=== PATIENT | female | born 1940 | race Caucasian/White ===

== ENCOUNTER 2022-01-30 11:41 | Inpatient (IN) | payer MEDICARE, SELFPAY ==
[2022-01-30] VITALS (8 sets, daily range): BP systolic 128–149; BP diastolic 69–75; PULSE 81–99; RESP 15–20; TEMP 37.1–37.3; O2SAT 92–95; BMI 27.0
--- NOTE | 2022-01-30 12:12 | W.ED.ABDPA2 ---
HPI - Abdominal Pain General: Chief Complaint: Abdominal Pain Stated Complaint: abdomen pain Time Seen by Provider: 01/30/22 11:45 Source: patient Mode of arrival: EMS Limitations: no limitations History of Present Illness: 81-year-old female presents emergency room complaining of abdominal pain. She refers pain in the left upper quadrant. States it began 6:00 yesterday morning. She just generally did not feel good she had gone to get some medicines from her pharmacy after that she ate at a fast food restaurant a few hours later she began throwing up with a positive food then bile after that. She denies any hematemesis or coffee-ground emesis. Progressively worse since then she is not had a fever she not had any dysuria urgency or frequency. She denies any black tarry stools. She notes that the pain is triggered by even light touch across the left upper abdominal wall. She is not noticed any rash in that region. MD elicited complaint: abdominal pain Pertinent past history: none Onset (ago): minute(s) Pain Consistency: constant Location: LUQ Severity: mild Quality: sharp Radiation: L flank and back Exacerbating factors: movement and other (Palpation and light touch as well as deep inspiration) Relieving factors: rest Associated Symptoms: Reports bloating, GI cramping, dyspepsia, nausea, poor appetite and vomiting; Denies anorexia, belching, change in bowel habits, change in stool character, chills, coffee ground emesis, constipation, diarrhea, dysuria, excessive flatus, fever(s), heartburn, hematochezia, hematuria, hematemesis, fecal incontinence, loose stools, melena and syncope Review of Systems Const: Denies: fever(s) or chills ENMT: Denies: throat pain, ear or mastoid pain, nasal discharge or nasal congestion Card: Denies: syncope Resp: Denies: dyspnea, productive cough or non-productive cough GI: Reports: nausea, vomiting, bloating and GI cramping; Denies: hematemesis, coffee ground emesis, heartburn, diarrhea, constipation, belching, excessive flatus, fecal incontinence, change in bowel habits, change in stool character, hematochezia or melena : Denies: dysuria or hematuria Skin/Breast: Denies: rash or pruritus PFSH ED PFSH: Medical History Colon cancer Surgical History H/O left hemicolectomy Hx of cholecystectomy Family History Other No pertinent family history Social History Smoking and tobacco status: never smoked Alcohol intake: never Physical Exam Const: GENERAL APPEARANCE: cooperative and comfortable ORIENTATION/CONSCIOUSNESS: Yes awake, Yes oriented to person, Yes oriented to place and Yes oriented to time HENMT: COMMON NORMALS: normocephalic, atraumatic and hearing grossly normal bilaterally HEAD & SCALP: normocephalic and atraumatic Eye: COMMON NORMALS: Equal, round and reactive pupils present, EOMs intact bilaterally, conjunctivae normal and no scleral icterus CONJUNCTIVA: Yes conjunctivae normal PUPIL: Yes Equal, round and reactive pupils present Neck/C-Spine: COMMON NORMALS: full ROM, no lymphadenopathy, supple and no JVD Lymph: LYMPHATIC: no lymphadenopathy noted and no lymphedema noted Resp: COMMON NORMALS: normal respiratory effort, No retractions, No use of accessory muscles and clear to auscultation bilaterally AUSCULTATION: clear to auscultation bilaterally Cardio: COMMON NORMALS: no JVD, regular rate, regular rhythm and No murmurs present (Cardio) RATE: regular rate RHYTHM: regular rhythm GI: COMMON NORMALS: Soft to palpation and No hepatosplenomegaly present AUSCULTATION: Yes normoactive bowel sounds PALPATION: Yes Soft to palpation, No Tenderness to palpation present (GI), No Guarding due to palpation present (GI) and Yes No hepatosplenomegaly present Extremity: COMMON NORMALS: normal to inspection, capillary refill normal, no clubbing, cyanosis or edema, no calf tenderness and no pedal edema Neuro: SENSORIUM/ORIENTATION: Yes oriented to person, Yes oriented to place and Yes oriented to time Skin: COMMON NORMALS: no rashes or lesions noted GENERAL SKIN EXAM: no rashes or lesions noted Course Vital Signs: Vital signs: Vital Signs Temperature 98.5 F 02/01/22 07:43 Pulse Rate 61 02/01/22 11:47 Respiratory Rate 16 02/01/22 11:47 Blood Pressure 120/71 02/01/22 07:43 Pulse Oximetry 92 02/01/22 11:47 MDM - Abdominal Pain Medical Decision Making CT reviewed. Patient has mild pancreatitis additionally has a renal mass he will need to be evaluated family has a L3 compression fracture appears minimal on radiology read is age-indeterminate. Could be contributing to her pain will admit discussed with hospitalist orders written Medical Records I reviewed the patient's medical records. Lab Data I reviewed the patient's lab results. : 01/31/22 05:30 02/01/22 04:45 Labs/Radiology: Radiology Impressions Abdomen/Pelvis CT 01/30/22 12:30 IMPRESSION: 1. No GI tract obstruction. 2. Solid mass RIGHT kidney measures 4.2 x 4.1 x 4.9 cm. Highly suspicious for renal cell carcinoma. 3. Mild soft tissue stranding and thickening along the LEFT pararenal fascia and paracolic gutter. Probably due to a mild case descending colon diverticulitis or pancreatitis of the pancreatic tail. 4. Numerous low-attenuation lesions in the liver consistent with cysts. 5. Prior cholecystectomy. 6. Cystic nodule mid pancreas and probably an additional tiny cysts at the pancreatic neck. Recommend follow-up pancreatic CT in 6 months with IV contrast. 7. Minimal age-indeterminate compression superior endplate of L3. 8. Bilateral femoral head avascular necrosis. Laboratory Results WBC 5.9 10^3/uL (4.0-10.0) 01/30/22 12:51 RBC 4.31 10^6/uL (4.1-5.3) 01/30/22 12:51 Hgb 14.7 g/dL (11.5-15.3) 01/30/22 12:51 Hct 43.7 % (37.0-47.0) 01/30/22 12:51 MCV 101.4 fl (81-99) H 01/30/22 12:51 MCH 34.1 pg (28.0-34.0) H 01/30/22 12:51 MCHC 33.6 g/dL (30.0-36.0) 01/30/22 12:51 RDW 12.5 % (12.1-15.1) 01/30/22 12:51 Plt Count 149 10^3/cmm (130-400) 01/30/22 12:51 MPV 10.9 fL (7.4-10.4) H 01/30/22 12:51 Neut % (Auto) 78.6 % 01/30/22 12:51 Lymph % (Auto) 13.5 % 01/30/22 12:51 [place] % (Auto) 7.1 % 01/30/22 12:51 Eos % (Auto) 0.3 % 01/30/22 12:51 Baso % (Auto) 0.3 % 01/30/22 12:51 Neut # (Auto) 4.67 10^3/uL (1.8-7.7) 01/30/22 12:51 Lymph # (Auto) 0.8 10^3/uL (0.8-4.8) 01/30/22 12:51 [place] # (Auto) 0.4 10^3/uL (0.2-0.9) 01/30/22 12:51 Eos # (Auto) 0.0 10^3/uL (0.0-0.8) 01/30/22 12:51 Baso # (Auto) 0.0 10^3/uL (0.0-0.1) 01/30/22 12:51 Nucleated RBC % (auto) 0 % 01/30/22 12:51 Nucleated RBCs # 0.0 /100WBC 01/30/22 12:51 Sodium 139 mmol/L (136-145) 01/30/22 12:51 Potassium 3.9 mmol/L (3.5-5.1) 01/30/22 12:51 Chloride 103 mmol/L (98-107) 01/30/22 12:51 Carbon Dioxide 21 mmol/L (22-29) L 01/30/22 12:51 Anion Gap 18.9 (5-19) 01/30/22 12:51 BUN 13 mg/dL (8-23) 01/30/22 12:51 Creatinine 0.8 mg/dL (0.5-0.9) 01/30/22 12:51 GFR Calculation Not Reportable 01/30/22 12:51 Glucose 92 mg/dL (65-115) 01/30/22 12:51 Calculated Osmolality 288 mOsm/kg (285-295) 01/30/22 12:51 Lactic Acid 1.1 mmol/L (0.5-2.2) 01/30/22 12:51 Calcium 9.5 mg/dL (8.5-10.5) 01/30/22 12:51 Total Bilirubin 1.3 mg/dL (0.15-1.2) H 01/30/22 12:51 AST 27 U/L (0-32) 01/30/22 12:51 ALT 14 U/L (0-33) 01/30/22 12:51 Alkaline Phosphatase 101 IU/L (35-105) 01/30/22 12:51 Total Protein 7.7 g/dL (6.6-8.7) 01/30/22 12:51 Albumin 4.4 g/dL (3.5-5.2) 01/30/22 12:51 Globulin 3.3 g/dL (1.3-4.6) 01/30/22 12:51 Triglycerides 92 mg/dL (0-150) 01/30/22 12: Lipase > 5756 U/L (13-60) H 01/30/22 12:51 Urine Color Yellow (Yellow) 01/30/22 12:05 Urine Appearance Clear (CLEAR) 01/30/22 12:05 Urine pH 6.5 (5-7) 01/30/22 12:05 Ur Specific [place] 1.010 (1.005-1.030) 01/30/22 12:05 Urine Protein Neg (Negative) 01/30/22 12:05 Urine Glucose (UA) Norm (Normal) 01/30/22 12:05 Urine Ketones 2+ (Negative) H 01/30/22 12:05 Urine Blood Neg (Negative) 01/30/22 12:05 Urine Nitrate Negative (Negative) 01/30/22 12:05 Urine Bilirubin Neg (Negative) 01/30/22 12:05 Urine Urobilinogen Neg mg/dL (Negative) 01/30/22 12:05 Ur Leukocyte Esterase Trace (Negative) H 01/30/22 12:05 Urine RBC Rare /hpf (0-2) 01/30/22 12:05 Urine WBC 5-10 /hpf (0-5) H 01/30/22 12:05 Ur Squamous Epith Cells 0-4 /hpf (0-5) H 01/30/22 12:05 Amorphous Sediment Not Reportable 01/30/22 12:05 Urine Bacteria None /hpf (NONE) 01/30/22 12:05 Discharge Plan Discharge Patient Disposition: Admitted As Inpatient Admit Provider: Bela Chacon Condition: Stable Discharge Orders: Discharge Order (Routine); Ordered 02/01/22 Ordered By: Bela Chacon Discharge Diet: Regular Discharge Activity: Increase activity as tolerated Coding Level of Care Code ED Distribution Center Manager for Chg Fwd Exam Comprehensive
--- NOTE | 2022-01-30 12:30 | CT_ITS ---
WS: [id number] CT ABDOMEN AND PELVIS WITH CONTRAST HISTORY: Generalized abdominal pain with nausea and vomiting. History of colon cancer. TECHNIQUE: Imaging performed of the abdomen and pelvis with IV contrast. Single phase imaging of the abdomen. Coronal and sagittal reformats are submitted. All CT scans at [facility] use at [address] one of these dose optimization techniques: automated exposure control; mA and/or kV adjustment per patient size (includes targeted exams where dose is matched to clinical indication); or iterative re construction. IV CONTRAST: Omnipaque 300; 95 mL IV. Oral contrast: No DLP: 876.21 mGy.cm COMPARISON: None available. Lower thorax: Benign granuloma at the RIGHT lung base. Mild enlargement of the heart. [Heart is roxi l size.] No hiatal hernia. Liver/biliary system: Liver is mildly enlarged and wraps around to the LEFT. There are multiple low-a ttenuation masses within the liver. The largest in the RIGHT lobe of the liver measures 9.9 x 11.0 x 7.7 cm. Smaller cysts are noted in the LEFT lobe. No bile duct dilatation. Portal vein is normal. Gallbladder: Prior cholecystectomy. Common bile duct is normal. Pancreas: 9 mm low-attenuation mass in the superior mid pancreas. Additional very tiny nodule near th e pancreatic neck on image 25 of series 2. Very mild inflammation involving the pancreatic tail. Spleen: Normal size with granulomata. Adrenal glands: Normal. Right kidney: Solid enhancing mass causing bulging of the normal contour of the kidney measures 4.2 x 4.1 x 4.9 cm. No hydronephrosis. Left kidney: Normal. Aorta: Normal. Lymphadenopathy: Small aortocaval lymph node measures 6.5 mm. There are a few small mesenteric lymph nodes which are all less than a centimeter. Free fluid: None. There is mild thickening along the LEFT paracolic gutter. May be associated with a very small amount of diverticulitis/colitis involving the descending colon. May also be associated wi th pancreatitis involving the very distal pancreas. GI tract: Nondistended stomach. No small bowel obstruction. Moderate fecal retention. Numerous divert icula in the sigmoid colon. Abdominal wall: Fat-containing umbilical hernia. Pelvis: No free fluid in the pelvis. Minimally distended urinary bladder. Calcification in the RIGHT pelvis may be from diverticular disease. Bones: Mild compression deformity involving the superior endplate of L3. Age indeterminate. No retrop ulsion of the vertebral body. Bilateral femoral head avascular necrosis. Slightly greater involvement on the RIGHT. CT/CT abdomen pelvis w con* [id number] IMPRESSION: 1. No GI tract obstruction. 2. Solid mass RIGHT kidney measures 4.2 x 4.1 x 4.9 cm. Highly suspicious for renal cell carcinoma. 3. Mild soft tissue stranding and thickening along the LEFT pararenal fascia a nd paracolic gutter. Probably due to a mild case descending colon diverticuliti s or pancreatitis of the pancreatic tail. 4. Numerous low-attenuation lesions in the liver consistent with cysts. 5. Prior cholecystectomy. 6. Cystic nodule mid pancreas and probably an additional tiny cysts at the salas creatic neck. Recommend follow-up pancreatic CT in 6 months with IV contrast. 7. Minimal age-indeterminate compression superior endplate of L3. 8. Bilateral femoral head avascular necrosis.
--- NOTE | 2022-01-30 12:30 | ECG_ITS ---
[facility] Test Date: 2022-01-30 Pat Name: Tracey Meeks Department: Room: Gender: Female Formal Waiter/Waitress: : 1940 Requested By: Diaz Burton Order Number: [id number] Corey MD: Abby Guerra M.D. Measurements Intervals [place] Rate: 73 P: 32 ID: [id number] QRS: -43 QRSD: 98 T: 14 QT: 405 QTc: 449 Interpretive Statements SINUS RHYTHM WITH SINUS ARRHYTHMIA LEFT AXIS DEVIATION [QRS AXIS < -30] MINIMAL ST DEPRESSION [0.025+ mV ST DEPRESSION] Compared to ECG 09/01/2017 22:39:20 No significant changes Electronically Signed On 01-31-2022 5:58:36 MACHINE FEATHEREDGER AND REDUCER by Abby Guerra M.D. [email or web address]
[2022-01-30 12:40] LABS: Add Urine Microscopic? YES; Bilirubin Urine Neg (Negative); Blood Urine Neg (Negative); Glucose Urine UA Norm (Normal); Ketones Urine 2+ (Negative); Leukocyte Esterase Urine Trace (Negative); Nitrate Urine Negative (Negative); Protein Urine Neg (Negative); Urine Appearance Clear (CLEAR); Urine Color Yellow (Yellow); Urobilinogen Urine Neg (Negative); pH Urine 6.5 (5-7)
[2022-01-30 12:41] LABS: Add Urine Culture? No; RBC Urine RARE /hpf (0-2); Squamous Epithelial Cell Urine 0-4 /hpf (0-5)
[2022-01-30 12:59] LABS: Basophils % 0.3 %; Eosinophils % 0.3 %; Hematocrit 43.7 % (37.0-47.0); Hemoglobin 14.7 g/dL (11.5-15.3); Lymphocytes # 0.8 10^3/uL (0.8-4.8); Lymphocytes % 13.5 %; Mean Corpuscular HGB Conc 33.6 g/dL (30.0-36.0); Mean Corpuscular Hemoglobin 34.1 pg (28.0-34.0); Mean Corpuscular Volume 101.4 fl (81-99); Mean Platelet Volume 10.9 fL (7.4-10.4); Monocytes # 0.4 10^3/uL (0.2-0.9); Monocytes % 7.1 %; Neutrophils # 4.67 10^3/uL (1.8-7.7); Neutrophils % 78.6 %; Nucleated Red Blood Cells % 0 %; Platelet Count 149 10^3/cmm (130-400); Red Blood Count 4.31 10^6/uL (4.1-5.3); Red Cell Distribution Width 12.5 % (12.1-15.1); White Blood Count 5.9 10^3/uL (4.0-10.0)
[2022-01-30 13:17] LABS: Alanine Aminotransferase 14 U/L (0-33); Albumin Level 4.4 g/dL (3.5-5.2); Alkaline Phosphatase 101 IU/L (35-105); Aspartate Amino Transferase 27 U/L (0-32); Blood Urea Nitrogen 13 mg/dL (8-23); Calcium 9.5 mg/dL (8.5-10.5); Carbon Dioxide 21 mmol/L (22-29); Chloride 103 mmol/L (98-107); Globulin 3.3 g/dL (1.3-4.6); Glucose 92 mg/dL (65-115); Osmolality Calculated 288 mOsm/kg (285-295); Sodium 139 mmol/L (136-145); Total Bilirubin 1.3 mg/dL (0.15-1.2); Total Protein 7.7 g/dL (6.6-8.7)
[2022-01-30 13:18] LABS: Lactic Sepsis W/Reflex 1.1 mmol/L (0.5-2.2)
[2022-01-30 13:20] LABS: Anion Gap 18.9 (5-19); Potassium 3.9 mmol/L (3.5-5.1)
[2022-01-30] MEDS: iohexol 300 mg/mL 100 mL Btl IV (14:35)
[2022-01-30] MEDS: piperacillin-tazobactam 4.5 GM in sodium chloride 0.9% (plus) 50 ML IV (16:25)
[2022-01-30 17:32] LABS: Triglycerides 92 mg/dL (0-150)
--- NOTE | 2022-01-30 17:57 | P.HP_ITS ---
Providers/Chief Complaint Admitting Physician: Bela Chacon MD Chief Complaint: abdomen pain History of Present Illness Tracey Meeks is a 81 year old female presenting for abdominal pain and vomiting. Patient is stating that she experienced an episode of vomiting at home after eating cheeseburger yesterday. In total she only had 3 episodes of vomiting. No fever, diarrhea, chest pain or shortness of breath. No recent change of antibiotics. She presented to ER for because of worsening of symptoms. In the ER she was diagnosed with pancreatitis, she does not have a gallbladder, I requested triglyceride level. Intensity of the pain is mostly midepigastric region, it is radiating towards her back. She describing it as mid epigastric sharp pain. Intensity of pain has gotten worse. Her last episode of pancreatitis was 3 years ago when she was seen in [place]. She does not smoke or drink alcohol. Last episode of p ancreatitis was attributed to high fat content containing food diet. Is hemodynamically stable Clinically slightly looks dehydrated Abdomen slightly tender Renal mass noted on CT abdomen pelvis hemoglobin 14 Review of Systems Const: Reports: body aches Eyes: Denies: change in vision ENMT: Denies: throat pain Card: Denies: chest pain Resp: Denies: dyspnea GI: Reports: abdominal pain, nausea and vomiting : Denies: flank pain Musc: Denies: neck pain Skin/Breast: Denies: rash Neuro: Denies: headache(s) Psych: Denies: anxiety Endo: Denies: polyuria Freddie/Lymph: Denies: easy bruising All/Imm: Denies: urticaria Medications/Allergies Home Medications Medication Instructions Recorded Confirmed Last Taken Type amlodipine 2.5 mg tablet 2.5 mg PO DAILY 01/30/22 01/30/22 01/30/22 History fluticasone propionate 44 2 puff INHALATION PRN PRN 01/30/22 01/30/22 Unknown History mcg/actuation HFA aerosol inhaler (Flovent HFA) Allergies Allergy/AdvReac Type Severity Reaction Status Date / Time iron Allergy ADR-Abdominal Verified 01/30/22 12:54 Pain PFSH Acute PFSH: Medical History (Updated 01/30/22 @ 18:37 by Bela Chacon MD) Colon cancer Surgical History (Updated 01/30/22 @ 18:38 by Bela Chacon MD) H/O left hemicolectomy Hx of cholecystectomy Family History (Updated 01/30/22 @ 18:36 by Bela Chacon MD) Other No pertinent family history Social History (Updated 01/30/22 @ 12:34 by Diaz Nice DO) Smoking and tobacco status: never smoked Alcohol intake: never Vitals/I&O/Wt Last Vital Signs Temp 98.7 F 01/30/22 11:50 Pulse 90 01/30/22 17:21 Resp 16 01/30/22 11:58 BP 129/75 01/30/22 17:21 Pulse Ox 92 01/30/22 17:21 01/30/22 01/30/22 01/30/22 06:59 14:59 22:59 Intake Total 50 / 50 Balance 50 / 50 Weight last 48 hrs Weight 60.781 kg Physical Exam Narrative: Patient is sitting comfortably in her bed Midepigastric tenderness on deep palpation Abdomen is distended and bloated No signs of peritonitis Slight signs of dehydration S1, S2 Saturating well on room air No signs of edema Nonfocal neuro exam Data : 01/30/22 12:51 01/30/22 12:51 A&P Assessment and plan (1) Pancreatitis: Status: Acute (2) Kidney mass: Status: Acute (3) Compression fracture: Status: Acute Plan Acute pancreatitis Symptoms started after eating cheeseburger Check triglyceride levels Lipase more than 5000 Renal mass Hemoglobin stable No signs of hematuria Conservative management Clear liquid diet Analgesia with morphine Start fluid resuscitation Patient does not drink alcohol or smoke No gallstones No CBD dilation This most likely is related to cheese intake DNR/DNI Clear liquid diet DVT prophylaxis Lovenox Attestations Medical Necessity Statement*: More than 2 midnights anticipated Time Spent in Patient Care: 35min Coding Level of Care Code Acute Diamond Selector for Chg Fwd Diagnoses Pancreatitis K85.90 Kidney mass N28.89 Compression fracture
[2022-01-30] MEDS: dextrose 5%-lactated ringers 1,000 ML 75 ML IV (18:55)
[2022-01-30] MEDS: enoxaparin 40 mg/0.4 mL Syringe SUBCUT (19:37)
[2022-01-30] MEDS: acetaminophen 500 mg Tablet PO (22:11)
[2022-01-31] VITALS (9 sets, daily range): BP systolic 124–141; BP diastolic 59–77; PULSE 70–97; RESP 16–20; TEMP 36.9–38.2; O2SAT 90–94
[2022-01-31 06:10] LABS: Basophils % 0.2 %; Eosinophils % 0.1 %; Hematocrit 41.6 % (37.0-47.0); Hemoglobin 13.8 g/dL (11.5-15.3); Lymphocytes # 1.2 10^3/uL (0.8-4.8); Lymphocytes % 14.9 %; Mean Corpuscular HGB Conc 33.2 g/dL (30.0-36.0); Mean Corpuscular Hemoglobin 33.3 pg (28.0-34.0); Mean Corpuscular Volume 100.2 fl (81-99); Mean Platelet Volume 11.5 fL (7.4-10.4); Monocytes # 0.9 10^3/uL (0.2-0.9); Monocytes % 10.8 %; Neutrophils # 5.91 10^3/uL (1.8-7.7); Neutrophils % 73.6 %; Nucleated Red Blood Cells % 0 %; Platelet Count 166 10^3/cmm (130-400); Red Blood Count 4.15 10^6/uL (4.1-5.3); Red Cell Distribution Width 12.7 % (12.1-15.1)
--- NOTE | 2022-01-31 06:29 | PC.NURSE ---
0600 Assisted pt to BR to void. Has had LLQ abd pain for most of the night. I have offered her pain and nausea medicine several times through the night. She has refused every time.
[2022-01-31 06:33] LABS: Alanine Aminotransferase 13 U/L (0-33); Albumin Level 4.1 g/dL (3.5-5.2); Alkaline Phosphatase 96 IU/L (35-105); Blood Urea Nitrogen 10 mg/dL (8-23); Calcium 9.2 mg/dL (8.5-10.5); Carbon Dioxide 22 mmol/L (22-29); Chloride 103 mmol/L (98-107); Globulin 3.2 g/dL (1.3-4.6); Glucose 104 mg/dL (65-115); Osmolality Calculated 281 mOsm/kg (285-295); Sodium 136 mmol/L (136-145); Total Bilirubin 1.3 mg/dL (0.15-1.2); Total Protein 7.3 g/dL (6.6-8.7)
[2022-01-31 06:39] LABS: Anion Gap 14.7 (5-19); Potassium 3.7 mmol/L (3.5-5.1)
[2022-01-31 06:40] LABS: Aspartate Amino Transferase 28 U/L (0-32)
[2022-01-31 06:50] LABS: Lipase 5018 U/L (13-60)
--- NOTE | 2022-01-31 09:31 | PM.PN ---
Subjective Subjective: Patient is able to tolerate clear liquid diet Lipase around 5000 Still complaint abdominal pain No active emesis Afebrile Vitals/I&O/Wt Last Vital Signs Temp 99.2 F 01/31/22 07:44 Pulse 85 01/31/22 09:01 Resp 16 01/31/22 09:01 BP 141/59 01/31/22 07:44 Pulse Ox 92 01/31/22 09:01 01/30/22 01/31/22 01/31/22 22:59 06:59 14:59 Intake Total 50 / 50 Balance 50 / 50 Weight last 48 hrs Weight 60.781 kg Physical Exam Narrative: She is sitting in her bed and abdomen tender in midepigastrium to deep palpation Bowel sounds present Dehydrated S1, S2 Saturating well on room air Nonfocal neuro exam Appropriate mood and affect Data : 01/31/22 05:30 01/31/22 05:30 A&P Assessment and plan (1) Compression fracture: Status: Acute (2) Kidney mass: Status: Acute (3) Pancreatitis: Status: Acute Plan Pancreatitis Pancreatitis Lipase 5000 Abdominal pain noted No signs of necrosis or sepsis Continue clear liquid diet IV fluids to be continued today and discontinue tomorrow Trend lipase IV Dilaudid analgesia Renal mass: Patient does not want to pursue histopathological diagnosis as she would not opt for chemo or radiotherapy. 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
[2022-01-31] MEDS: dextrose 5%-lactated ringers 1,000 ML 75 ML IV (09:38)
--- NOTE | 2022-01-31 09:49 | PC.CHAP ---
Pastoral Care Encounter/Spiritual Assessment Type of Contact [] Declined administrative assistant visit [] Patient/Family/Request visit [] Outpatient visit [] Follow-up visit [] Physician referral [] Code/Alert [x] Routine visit [] Staff referral [] Actively dying [] Patient sleeping [] Family support [] [] Out of room [] Palliative care [] [] Receiving care in room [] Pre-surgical visit [] Trauma [] Long length of stay [] ICU visit [] Other: Relational/Emotional Strength [x] Patient feels connected with others/family/visitors/staff [] Distress [] Loneliness/isolation [] Abandonment Spirituality of Patient [x] Person of Rianna [] Attends Yazidi of their Rianna [x] Believes in Prayer [x] Reads Bible or Nondenominational materials [] There are Spiritual issues to be addressed Chief Librarian Work With Blind Interventions [x] Prayer [x Active listening [x] Non-anxious presence [x] Spiritual/emotional support [] Crisis/trauma care [] Spiritual counseling [] Bereavement support [] Provided bereavement packet [] Provided Bible/devotional materials [] Provided toy/stuffed animal, coloring book to patient or family member [] Provided Communion [] Anointing/Haughton [] Salvation [x] Completed spiritual assessment [] Other: Impact on Illness or Injury [] Angry [] Fearful [] Anxious [] Often cries [] Exhaustion [] Unable to work [] Unable to attend anglican [] Unable to walk/stand [] Unable to read [] Unable to drive [] Unable to eat/drink [] Unable to sleep [] Unable to be with family [] Patient intubated [] Other: Summary Time spent with patient 10 min
[2022-01-31] MEDS: enoxaparin 40 mg/0.4 mL Syringe SUBCUT (17:18)
[2022-01-31] MEDS: acetaminophen 500 mg Tablet PO (20:29)
[2022-02-01] VITALS: BP 98/58; PULSE 71; RESP 17; TEMP 37.1; O2SAT 94
[2022-02-01 03:55] VITALS: BP 129/81; PULSE 74; RESP 17; TEMP 36.7; O2SAT 96
[2022-02-01] MEDS: dextrose 5%-lactated ringers 1,000 ML 75 ML IV (03:57)
--- NOTE | 2022-02-01 04:16 | PC.NURSE ---
Pt rested quietly throughout shift. PRN Tylenol given for temp of 100.8, recheck one hour later was 99.6. VS otherwise stable. No complaints of pain. Pt up to bathroom with adequate UOP. Pt repositioned frequently. Hourly rounding done. All needs met.
[2022-02-01 05:22] LABS: Alanine Aminotransferase 13 U/L (0-33); Albumin Level 3.7 g/dL (3.5-5.2); Alkaline Phosphatase 89 IU/L (35-105); Anion Gap 13.3 (5-19); Aspartate Amino Transferase 28 U/L (0-32); Blood Urea Nitrogen 8 mg/dL (8-23); Calcium 8.4 mg/dL (8.5-10.5); Carbon Dioxide 23 mmol/L (22-29); Chloride 105 mmol/L (98-107); Globulin 3.3 g/dL (1.3-4.6); Glucose 101 mg/dL (65-115); Osmolality Calculated 284 mOsm/kg (285-295); Potassium 3.3 mmol/L (3.5-5.1); Sodium 138 mmol/L (136-145); Total Bilirubin 1.2 mg/dL (0.15-1.2)
[2022-02-01 05:38] LABS: Lipase 514 U/L (13-60)
[2022-02-01 07:43] VITALS: BP 120/71; PULSE 81; RESP 16; TEMP 36.9; O2SAT 94
--- NOTE | 2022-02-01 08:42 | P.DS_ITS ---
Discharge Providers Date of Admission: 01/30/22 16:33 Date of Discharge: February 01, 2022 Attending Provider at Admission: Bela Chacon MD Attending Provider at Discharge: Bela Chacon MD Diagnoses at Discharge Discharge Diagnosis (1) Compression fracture: Status: Acute (2) Kidney mass: Status: Acute (3) Pancreatitis: Status: Acute Reason for Visit Reason for Visit: abdomen pain Hospital Course Hospital Course 81-year-old patient was admitted for management and evaluation of pancreatitis, no CBD dilation, she is a non-smoker nonalcoholic. She remained afebrile no signs of necrosis or sepsis. She improved with conservative management. She was kept on clear liquid diet. Lipase trending down to 5/14 on 02/01. On admission it was above 5000. Most likely etiology is her dietary increase fat content. To err on the partial side I will discontinue amlodipine and give her low-dose lisinopril to be taken only if her systolic blood pressure above 140 or diastolic above 90 mmHg. Patient was counseled. She is being discharged in stable condition. For her kidney mass she does not want to pursue histopathological diagnosis as she would not opt for chemo radiotherapy or any surgical intervention. For compression fracture we will give her oxycodone. No signs of cauda equina. Physical Exam Narrative: She is sitting in her bed and abdomen nontender Bowel sounds present Dehydration signs improved S1, S2 Saturating well on room air Nonfocal neuro exam Appropriate mood and affect Discharge Data Studies Completed and Pending Completed Studies During Hospitalization Category Date Time Status CT abdomen pelvis w con* [id number] Stat Cat Scan 01/30/22 12:30 Completed Radiology Impressions Abdomen/Pelvis CT 01/30/22 12:30 IMPRESSION: 1. No GI tract obstruction. 2. Solid mass RIGHT kidney measures 4.2 x 4.1 x 4.9 cm. Highly suspicious for renal cell carcinoma. 3. Mild soft tissue stranding and thickening along the LEFT pararenal fascia and paracolic gutter. Probably due to a mild case descending colon diverticulitis or pancreatitis of the pancreatic tail. 4. Numerous low-attenuation lesions in the liver consistent with cysts. 5. Prior cholecystectomy. 6. Cystic nodule mid pancreas and probably an additional tiny cysts at the pancreatic neck. Recommend follow-up pancreatic CT in 6 months with IV contrast. 7. Minimal age-indeterminate compression superior endplate of L3. 8. Bilateral femoral head avascular necrosis. Laboratory Results WBC 8.0 10^3/uL (4.0-10.0) 01/31/22 05:30 RBC 4.15 10^6/uL (4.1-5.3) 01/31/22 05:30 Hgb 13.8 g/dL (11.5-15.3) 01/31/22 05:30 Hct 41.6 % (37.0-47.0) 01/31/22 05:30 MCV 100.2 fl (81-99) H 01/31/22 05:30 MCH 33.3 pg (28.0-34.0) 01/31/22 05:30 MCHC 33.2 g/dL (30.0-36.0) 01/31/22 05:30 RDW 12.7 % (12.1-15.1) 01/31/22 05:30 Plt Count 166 10^3/cmm (130-400) 01/31/22 05:30 MPV 11.5 fL (7.4-10.4) H 01/31/22 05:30 Neut % (Auto) 73.6 % 01/31/22 05:30 Lymph % (Auto) 14.9 % 01/31/22 05:30 [place] % (Auto) 10.8 % 01/31/22 05:30 Eos % (Auto) 0.1 % 01/31/22 05:30 Baso % (Auto) 0.2 % 01/31/22 05:30 Neut # (Auto) 5.91 10^3/uL (1.8-7.7) 01/31/22 05:30 Lymph # (Auto) 1.2 10^3/uL (0.8-4.8) 01/31/22 05:30 [place] # (Auto) 0.9 10^3/uL (0.2-0.9) 01/31/22 05:30 Eos # (Auto) 0.0 10^3/uL (0.0-0.8) 01/31/22 05:30 Baso # (Auto) 0.0 10^3/uL (0.0-0.1) 01/31/22 05:30 Nucleated RBC % (auto) 0 % 01/31/22 05:30 Nucleated RBCs # 0.0 /100WBC 01/31/22 05:30 Sodium 138 mmol/L (136-145) 02/01/22 04:45 Potassium 3.3 mmol/L (3.5-5.1) L 02/01/22 04:45 Chloride 105 mmol/L (98-107) 02/01/22 04:45 Carbon Dioxide 23 mmol/L (22-29) 02/01/22 04:45 Anion Gap 13.3 (5-19) 02/01/22 04:45 BUN 8 mg/dL (8-23) 02/01/22 04:45 Creatinine 0.8 mg/dL (0.5-0.9) 02/01/22 04:45 GFR Calculation Not Reportable 02/01/22 04:45 Glucose 101 mg/dL (65-115) 02/01/22 04:45 Calculated Osmolality 284 mOsm/kg (285-295) L 02/01/22 04:45 Lactic Acid 1.1 mmol/L (0.5-2.2) 01/30/22 12:51 Calcium 8.4 mg/dL (8.5-10.5) L 02/01/22 04:45 Magnesium 2.0 mg/dL (1.7-2.3) 01/31/22 05:30 Total Bilirubin 1.2 mg/dL (0.15-1.2) 02/01/22 04:45 AST 28 U/L (0-32) 02/01/22 04:45 ALT 13 U/L (0-33) 02/01/22 04:45 Alkaline Phosphatase 89 IU/L (35-105) 02/01/22 04:45 Total Protein 7.0 g/dL (6.6-8.7) 02/01/22 04:45 Albumin 3.7 g/dL (3.5-5.2) 02/01/22 04:45 Globulin 3.3 g/dL (1.3-4.6) 02/01/22 04:45 Triglycerides 92 mg/dL (0-150) 01/30/22 12:51 Lipase 514 U/L (13-60) H 02/01/22 04:45 Urine Color Yellow (Yellow) 01/30/22 12:05 Urine Appearance Clear (CLEAR) 01/30/22 12:05 Urine pH 6.5 (5-7) 01/30/22 12:05 Ur Specific [place] 1.010 (1.005-1.030) 01/30/22 12:05 Urine Protein Neg (Negative) 01/30/22 12:05 Urine Glucose (UA) Norm (Normal) 01/30/22 12:05 Urine Ketones 2+ (Negative) H 01/30/22 12:05 Urine Blood Neg (Negative) 01/30/22 12:05 Urine Nitrate Negative (Negative) 01/30/22 12:05 Urine Bilirubin Neg (Negative) 01/30/22 12:05 Urine Urobilinogen Neg mg/dL (Negative) 01/30/22 12:05 Ur Leukocyte Esterase Trace (Negative) H 01/30/22 12:05 Urine RBC Rare /hpf (0-2) 01/30/22 12:05 Urine WBC 5-10 /hpf (0-5) H 01/30/22 12:05 Ur Squamous Epith Cells 0-4 /hpf (0-5) H 01/30/22 12:05 Amorphous Sediment Not Reportable 01/30/22 12:05 Urine Bacteria None /hpf (NONE) 01/30/22 12:05 Vitals Last Vital Signs Temp 98.5 F 02/01/22 07:43 Pulse 81 02/01/22 07:43 Resp 16 02/01/22 07:43 BP 120/71 02/01/22 07:43 Pulse Ox 94 02/01/22 07:43 Discharge Plan Discharge Patient Disposition: Home Condition: Stable Prescriptions: New Zofran 4 mg tablet 4 mg PO DAILY Qty: 20 0RF oxycodone 5 mg tablet 5 mg PO DAILY PRN (Reason: pain) Qty: 7 0RF lisinopril 2.5 mg tablet 2.5 mg PO DAILY Qty: 30 0RF Continued Flovent HFA 44 mcg/actuation HFA aerosol inhaler 2 puff INHALATION PRN PRN (Reason: Shortness Of Breath) 0RF Discontinued amlodipine 2.5 mg tablet 2.5 mg PO DAILY 0RF Discharge Orders: Discharge Order (Routine); Ordered 02/01/22 Ordered By: Bela Chacon Discharge Diet: Regular Discharge Activity: Increase activity as tolerated Patient Instructions: Lisinopril (By mouth), Oxycodone, Rapid Release (By mouth), Ondansetron (By mouth) (Zofran, Zofran ODT, Zuplenz), Pancreatitis (DC), Opioid Safety Activity Restrictions/Additional Instructions: Please follow-up with primary care provider as needed. Discharge Attestations Time Spent in Discharge Care*: less than 30 min Quality Metrics Clinical Quality Measures [ No reported AMI, CVA or VTE this stay] Coding Level of Care Code Acute Chg FW DC note Diagnoses Compression fracture Kidney mass N28.89 Pancreatitis K85.90
[2022-02-01 09:00] VITALS: PULSE 61; RESP 16; O2SAT 92
[2022-02-01 11:47] VITALS: PULSE 61; RESP 16; O2SAT 92
--- NOTE | 2022-02-01 12:24 | PC.NURSE ---
Pt. lisinopril called into [facility] by this nurse. Message left with our employee pharmacy to cancel the lisinopril prescription.
== END 2022-02-01 11:25 | disposition home or self-care (01) | DRG 439 ==
LOC: ER 13:16 → MEDSURG 17:52
PROVIDERS: Emergency Medicine; Admitting Provider Internal Medicine; Emergency Provider Family Medicine; Visit Provider Internal Medicine
DX: K85.90 Acute pancreatitis without necrosis or infection, unspecified (principal); M48.56XA Collapsed vertebra, not elsewhere classified, lumbar region, initial encounter for fracture; N28.89 Other specified disorders of kidney and ureter; Z90.49 Acquired absence of other specified parts of digestive tract; Z66 Do not resuscitate; Z85.038 Personal history of other malignant neoplasm of large intestine
CPT/HCPCS: 36415; 74177; 80053; 81001; 83605; 83690; 83735; 84478; 85025; 93005; 96365; 96372; 99285; J1650; J2543; Q9967

== ENCOUNTER 2022-12-24 12:00 | Emergency (ER) | payer MEDICARE, SELFPAY ==
[2022-12-24] VITALS (10 sets, daily range): BP systolic 124–166; BP diastolic 80–87; PULSE 89–107; RESP 16–25; TEMP 36.6; O2SAT 95–97
--- NOTE | 2022-12-24 12:29 | ECG_ITS ---
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 Measurements Intervals [place] Rate: 89 P: 62 [place]: 151 QRS: -42 QRSD: 94 T: 74 QT: 351 QTc: 427 Interpretive Statements SINUS RHYTHM WITH SINUS ARRHYTHMIA LEFT AXIS DEVIATION [QRS AXIS < -30] PATTERN CONSISTENT WITH PULMONARY DISEASE MODERATE ST DEPRESSION [0.05+ mV ST DEPRESSION] Compared to ECG 01/30/2022 13:09:42 No significant changes Electronically Signed On 12-24-2022 16:28:25 DIRECTOR MARKETING by Chaka Adair M.D. [id number]
--- NOTE | 2022-12-24 12:52 | ED_ITS ---
HPI - GI Bleed General: Chief complaint: GI Bleed Stated complaint: GI bleed Time Seen by Provider: 12/24/22 12:02 Source: patient Mode of arrival: EMS History of Present Illness: 82-year-old female presents emergency room via EMS with complaints of bright red blood per rectum. States she has had this for the last for 5 days she had called an ambulance because she was concerned about even taking the ambulance to the ER because of recent winter weather. She is not on any anticoagulants. She tells me she has had bright red blood per rectum in the past some 20+ years ago she had a colon cancer had GI bleeding had a resection of her colon has not had any recurrence. She has been feeling somewhat weak dizzy and lightheaded as well. On arrival here she is mildly tachycardic but her blood pressure is well preserved in the 130 systolic range. She denies any chest or abdominal pain dysuria urgency or frequency. MD complaint: gross hematochezia Onset (ago): day(s) (4-5) Relieving factors: none Exacerbating factors: none Context: history of GI bleed and other (History colon cancer) Associated symptoms: Denies abdominal pain, chills, easy bruising, epistaxis, fever(s), headache(s), malaise, nausea, other bleeding, poor appetite, rash, syncope, vomiting or weakness Review of Systems Const: Denies: fever(s), chills, fatigue or malaise ENMT: Denies: throat pain or epistaxis Card: Denies: chest pain, palpitations, irregular heart rhythm, edema or syncope Resp: Denies: dyspnea, productive cough or non-productive cough GI: Denies: abdominal pain, nausea or vomiting : Denies: flank pain, difficulty voiding, dysuria, urinary frequency or urinary urgency Skin/Breast: Denies: rash or pruritus Neuro: Denies: headache(s) Freddie/Lymph: Denies: easy bruising PFSH ED PFSH: Medical History Colon cancer Surgical History H/O left hemicolectomy Hx of cholecystectomy Family History Other No pertinent family history Social History Smoking and tobacco status: never smoked Alcohol intake: never Physical Exam Const: GENERAL APPEARANCE: cooperative and comfortable ORIENTATION/CONSCIOUSNESS: Yes awake, Yes oriented to person, Yes oriented to place and Yes oriented to time HENMT: COMMON NORMALS: normocephalic, atraumatic and hearing grossly normal bilaterally HEAD & SCALP: normocephalic and atraumatic Resp: COMMON NORMALS: normal respiratory effort, No retractions, No use of accessory muscles and clear to auscultation bilaterally AUSCULTATION: clear to auscultation bilaterally Cardio: COMMON NORMALS: regular rate, regular rhythm and No murmurs present (Cardio) RATE: regular rate RHYTHM: regular rhythm GI: COMMON NORMALS: Soft to palpation and No hepatosplenomegaly present AUSCULTATION: Yes normoactive bowel sounds PALPATION: Yes Soft to palpation, No Tenderness to palpation present (GI), No Guarding due to palpation present (GI) and Yes No hepatosplenomegaly present Extremity: COMMON NORMALS: normal to inspection, capillary refill normal, no clubbing, cyanosis or edema, no calf tenderness and no pedal edema Neuro: SENSORIUM/ORIENTATION: Yes oriented to person, Yes oriented to place and Yes oriented to time Skin: COMMON NORMALS: no rashes or lesions noted GENERAL SKIN EXAM: no rashes or lesions noted Course Vital Signs: Vital signs: Vital Signs Temperature 97.8 F 12/24/22 12:01 Pulse Rate 90 12/24/22 13:20 Respiratory Rate 17 12/24/22 13:20 Blood Pressure 124/87 12/24/22 13:30 Pulse Oximetry 95 12/24/22 13:20 Oxygen Delivery Me thod 12/24/22 13:10 MDM - GI Bleed Medical Decision Making Labs imaging EKG reviewed as found in the chart. Patient has diverticulitis with evidence of localized inflammation no abscess. Will treat with Cipro and Flagyl. There is also question of some thickening in the area of the colon concern. She has a history of colon cancer she should have that area reevaluated in 6 to 8 weeks by colonoscopy recommend that she follow-up with primary care doctor on this. Return if she has worsening problems. Medical Records I reviewed the patient's medical records. Lab Data I reviewed the patient's lab results. 12/24/22 12:35 12/24/22 12:35 Radiology Impressions Abdomen/Pelvis CT 12/24/22 12:52 IMPRESSION: 1. Moderate acute inflammatory changes with asymmetric wall thickening involving the descending colon. Additional pericolonic soft tissue stranding and inflammatory changes extending along the paracolic gutter. Differential includes diverticulitis and infectious colitis. Recurrent neoplasm needs to be excluded due to the asymmetry of the wall thickening. Recommend colonoscopy evaluation if this has not been performed recently. 2. Patient has a known solid RIGHT renal neoplasm which is unchanged since 01/30/2022. 3. Hepatic cysts and prior cholecystectomy. Laboratory Results WBC 2.9 10^3/uL (4.0-10.0) L 12/24/22 12:35 RBC 4.05 10^6/uL (4.1-5.3) L 12/24/22 12:35 Hgb 13.1 g/dL (11.5-15.3) 12/24/22 12:35 Hct 39.7 % (37.0-47.0) 12/24/22 12:35 MCV 98.0 fl (81-99) 12/24/22 12:35 MCH 32.3 pg (28.0-34.0) 12/24/22 12:35 MCHC 33.0 g/dL (30.0-36.0) 12/24/22 12:35 RDW 12.6 % (12.1-15.1) 12/24/22 12:35 Plt Count 123 10^3/cmm (130-400) L 12/24/22 12:35 MPV 11.5 fL (7.4-10.4) H 12/24/22 12:35 Neut % (Auto) 61.0 % 12/24/22 12:35 Lymph % (Auto) 25.6 % 12/24/22 12:35 [place] % (Auto) 13.0 % 12/24/22 12:35 Eos % (Auto) 0.0 % 12/24/22 12:35 Baso % (Auto) 0.4 % 12/24/22 12:35 Neut # (Auto) 1.74 10^3/uL (1.8-7.7) L 12/24/22 12:35 Lymph # (Auto) 0.7 10^3/uL (0.8-4.8) L 12/24/22 12:35 [place] # (Auto) 0.4 10^3/uL (0.2-0.9) 12/24/22 12:35 Eos # (Auto) 0.0 10^3/uL (0.0-0.8) 12/24/22 12:35 Baso # (Auto) 0.0 10^3/uL (0.0-0.1) 12/24/22 12:35 Nucleated RBC % (auto) 0 % 12/24/22 12:35 Nucleated RBCs # 0.0 /100WBC 12/24/22 12:35 PT 14.00 SECONDS (12.1-14.9) 12/24/22 12:35 INR 1.05 (0.8-1.2) 12/24/22 12:35 APTT 37.1 SECONDS (23.9-36.7) H 12/24/22 12:35 Sodium 139 mmol/L (136-145) 12/24/22 12:35 Potassium 3.2 mmol/L (3.5-5.1) L 12/24/22 12:35 Chloride 102 mmol/L (98-107) 12/24/22 12:35 Carbon Dioxide 26 mmol/L (22-29) 12/24/22 12:35 Anion Gap 14.2 (5-19) 12/24/22 12:35 BUN 10 mg/dL (8-23) 12/24/22 12:35 Creatinine 0.9 mg/dL (0.5-0.9) 12/24/22 12:35 GFR Calculation Not Reportable 12/24/22 12:35 Glucose 129 mg/dL (65-115) H 12/24/22 12:35 Calculated Osmolality 289 mOsm/kg (285-295) 12/24/22 12:35 Calcium 8.6 mg/dL (8.5-10.5) 12/24/22 12:35 Total Bilirubin 1.0 mg/dL (0.15-1.2) 12/24/22 12:35 AST 38 U/L (0-32) H 12/24/22 12:35 ALT 15 U/L (0-33) 12/24/22 12:35 Alkaline Phosphatase 75 U/L (35-105) 12/24/22 12:35 Total Protein 7.3 g/dL (6.6-8.7) 12/24/22 12:35 Albumin 3.7 g/dL (3.5-5.2) 12/24/22 12:35 Globulin 3.6 g/dL (1.3-4.6) 12/24/22 12:35 Discharge Plan Discharge Patient Disposition: Home Clinical Impression: Diverticulitis, History of colon cancer Condition: Stable Prescriptions: New Cipro 500 mg tablet 500 mg PO BID Qty: 14 0RF metronidazole 500 mg tablet 500 mg PO BID 7 Days Qty: 14 0RF No Action fluticasone propionate [Flovent HFA] 44 mcg/actuation HFA aerosol inhaler 2 puff INHALATION PRN PRN (Reason: Shortness Of Breath) amlodipine 2.5 mg tablet 2.5 mg PO DAILY losartan 25 mg tablet 25 mg PO DAILY Vitamin D3 25 mcg (1,000 unit) Tablet 25 mcg PO DAILY Discharge Orders: Discharge ED (Routine); Ordered 12/24/22 Ordered By: Diaz Nice Discharge Diet: Clear Liquid Discharge Activity: Increase activity as tolerated Patient Instructions: Opioid Safety, Pain Management Activity Restrictions/Additional Instructions: You are seen today for rectal bleeding CT appears to show diverticulitis think that may be the source of your bleeding recommend you take 7 days of ciprofloxacin and metronidazole. Because of your history of colon cancers recommend that you follow-up with your doctor and have a repeat colonoscopy at some point in the near future. Recommend for the next 24 to 48 hours you stick with a clear liquid diet and then advance as tolerated. Coding Level of Care Code ED Patient Services Coordinator for Chg Fwd Exam Detailed
--- NOTE | 2022-12-24 12:52 | CT_ITS ---
WS: [id number] CT ABDOMEN AND PELVIS WITH CONTRAST HISTORY: Blood in stool for 5 days. History of colon cancer. TECHNIQUE: Imaging performed of the abdomen and pelvis with IV contrast. Single phase imaging of the abdomen. Coronal and sagittal reformats are submitted. All CT scans at [facility] use at [address] one of these dose optimization techniques: automated exposure control; mA and/or kV adjustment per patient size (includes targeted exams where dose is matched to clinical indication); or iterative re construction. IV CONTRAST: Omnipaque 350; 100 mL IV. Oral contrast: No DLP: 383.50 mGy.cm COMPARISON: 01/30/2022 Lower thorax: Benign granuloma at the RIGHT lung base. Mild cardiomegaly. No hiatal hernia. Liver/biliary system: Patient has known large cyst within the liver measuring 9.4 x 10.1 cm. Very sim ilar in size and appearance to 01/30/2022. Additional smaller cysts scattered throughout the liver. No solid mass or bile duct dilatation. Gallbladder: Status post cholecystectomy. Pancreas: Normal size pancreas and pancreatic duct. No adjacent inflammation. Spleen: Numerous granulomata. Spleen is measuring 11.9 cm in length. Adrenal glands: Normal. Right kidney: Patient has a known solid renal mass measuring 3.8 x 3.7 cm which is been previous the described without obvious change or increased. No obstruction of the kidney. Left kidney: Normal. Aorta: Mild atherosclerosis with no aneurysm. Lymphadenopathy: None. Mild edema and mesenteric stranding centrally and extending along the LEFT par acolic gutter. Free fluid: None. GI tract: Normally distended stomach. No small bowel obstruction. Acute inflammatory changes involvin g the descending colon. There is asymmetric wall thickening involving the descending colon with acute inflammatory changes surrounding the colon extending along the paracolic gutter. There are a few div erticula in the distal sigmoid colon which are not inflamed. Abdominal wall: Unremarkable abdominal wall. No hernia. Pelvis: No free fluid or adenopathy within the pelvis. Prior hysterectomy. Bones: Bilateral osteonecrosis involving the femoral heads. Schmorl's node at L3. CT/CT abdomen pelvis w con* [id number] IMPRESSION: 1. Moderate acute inflammatory changes with asymmetric wall thickening involvi ng the descending colon. Additional pericolonic soft tissue stranding and infla mmatory changes extending along the paracolic gutter. Differential includes div erticulitis and infectious colitis. Recurrent neoplasm needs to be excluded due to the asymmetry of the wall thickening. Recommend colonoscopy evaluation if t his has not been performed recently. 2. Patient has a known solid RIGHT renal neoplasm which is unchanged since 01/21. 3. Hepatic cysts and prior cholecystectomy.
[2022-12-24 12:54] LABS: Basophils % 0.4 %; Hematocrit 39.7 % (37.0-47.0); Hemoglobin 13.1 g/dL (11.5-15.3); Lymphocytes # 0.7 10^3/uL (0.8-4.8); Lymphocytes % 25.6 %; Mean Corpuscular Hemoglobin 32.3 pg (28.0-34.0); Mean Platelet Volume 11.5 fL (7.4-10.4); Monocytes # 0.4 10^3/uL (0.2-0.9); Neutrophils # 1.74 10^3/uL (1.8-7.7); Nucleated Red Blood Cells % 0 %; Platelet Count 123 10^3/cmm (130-400); Red Blood Count 4.05 10^6/uL (4.1-5.3); Red Cell Distribution Width 12.6 % (12.1-15.1); White Blood Count 2.9 10^3/uL (4.0-10.0)
[2022-12-24 13:06] LABS: INR 1.05 (0.8-1.2); Partial Thromboplastin Time 37.1 SECONDS (23.9-36.7)
[2022-12-24 13:14] LABS: Alanine Aminotransferase 15 U/L (0-33); Albumin Level 3.7 g/dL (3.5-5.2); Alkaline Phosphatase 75 U/L (35-105); Anion Gap 14.2 (5-19); Aspartate Amino Transferase 38 U/L (0-32); Blood Urea Nitrogen 10 mg/dL (8-23); Calcium 8.6 mg/dL (8.5-10.5); Carbon Dioxide 26 mmol/L (22-29); Chloride 102 mmol/L (98-107); Globulin 3.6 g/dL (1.3-4.6); Glucose 129 mg/dL (65-115); Osmolality Calculated 289 mOsm/kg (285-295); Potassium 3.2 mmol/L (3.5-5.1); Sodium 139 mmol/L (136-145); Total Protein 7.3 g/dL (6.6-8.7)
[2022-12-24] MEDS: iohexol 350 mg/mL 500 mL Btl (per mL) IV (13:31)
== END 2022-12-24 14:42 | disposition home or self-care (01) ==
PROVIDERS: Emergency Provider Family Medicine
DX: K57.92 Diverticulitis of intestine, part unspecified, without perforation or abscess without bleeding (principal); Z85.038 Personal history of other malignant neoplasm of large intestine
CPT/HCPCS: 74177; 80053; 85025; 85610; 85730; 93005; 99285; Q9967

== ENCOUNTER 2024-04-26 16:37 | Emergency (ER) | payer MEDICARE, SELFPAY ==
--- NOTE | 2024-04-26 16:41 | XRR_ITS ---
PROCEDURE INFORMATION: Exam: XR Chest Exam date and time: 04/26/2024 4:48 PM Age: 84 years old Clinical indication: Pain; Angina pectoris; Additional info: Cp TECHNIQUE: Imaging protocol: Radiologic exam of the chest. Views: 1 view. COMPARISON: CR XR chest 1V [id number] 09/01/2017 5:38 PM FINDINGS: Lungs: Unremarkable. No consolidation. Pleural spaces: Unremarkable. No pleural effusion. No pneumothorax. Heart/Mediastinum: Unremarkable. No cardiomegaly. Bones/joints: Unremarkable. XR/XR chest 1V portable [id number] IMPRESSION: No acute findings.
--- NOTE | 2024-04-26 16:42 | ECG_ITS ---
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 Measurements Intervals [place] Rate: 95 P: 59 [place]: 168 QRS: -61 QRSD: 98 T: 67 QT: 365 QTc: 460 Interpretive Statements SINUS RHYTHM PATTERN CONSISTENT WITH PULMONARY DISEASE LEFT ANTERIOR FASCICULAR BLOCK [QRS AXIS <= -45, QR IN I, RS IN II] NONSPECIFIC T-WAVE ABNORMALITY Compared to ECG 12/24/2022 12:29:05 Left anterior fascicular block now present T-wave abnormality now present Sinus arrhythmia no longer present Left-axis deviation no longer present ST (T wave) deviation no longer present Electronically Signed On 04-26-2024 17:06:33 CDT by Chaka Adair M.D. [id number]
[2024-04-26 16:44] VITALS: BP 172/87; PULSE 95; RESP 18; TEMP 36.9; O2SAT 94; BMI 25.2
[2024-04-26 16:51] VITALS: BP 172/87; PULSE 71; RESP 19; O2SAT 98
--- NOTE | 2024-04-26 17:00 | ED_ITS ---
HPI - Chest Pain 2 General: Chief Complaint: Chest Pain Stated Complaint: Chest Pain Time Seen by Provider: 04/26/24 16:41 Source: patient and EMS Mode of arrival: EMS Limitations: no limitations History of Present Illness: 84-year-old female who states that she h as been having left-sided chest pain for the last 2 days she states been a very sharp pain in her left chest states it is worse with movement especially with her arm and with palpation. She denies any known injury she denies any shortness of breath she denies any nausea or diaphoresis. Associated symptoms: Deny abdominal pain, dyspnea, fever(s), nausea or vomiting Review of Systems 2 Const: Denies: fever(s), chills, body aches or change in appetite ENMT: Denies: throat pain or dental pain Card: Reports: chest pain Resp: Denies: dyspnea GI: Denies: abdominal pain, nausea, vomiting or diarrhea Musc: Denies: neck pain or back pain Skin/Breast: Denies: rash Neuro: Denies: headache(s) PFSH ED 2 PFSH: Medical History Colon cancer Surgical History Hx of cholecystectomy H/O left hemicolectomy Family History Other No pertinent family history Social History Smoking and tobacco/nicotine status: never used tobacco/nicotine Alcohol intake: never Physical Exam 2 Const: COMMON NORMALS: no acute distress, patient oriented x3 and healthy appearing HENMT: COMMON NORMALS: normocephalic and atraumatic HEAD & SCALP: n ormocephalic and atraumatic Eye: COMMON NORMALS: conjunctivae normal CONJUNCTIVA: Yes conjunctivae normal Neck/C-Spine: COMMON NORMALS: full ROM and supple Chest: COMMONS NORMALS: normal inspection of the chest OTHER: point tender over left chest wall reproduces pain Resp: COMMON NORMALS: normal respiratory effort, No retractions, No use of accessory muscles and clear to auscultation bilaterally AUSCULTATION: clear to auscultation bilaterally Cardio: COMMON NORMALS: regular rate, regular rhythm and No murmurs present (Cardio) RATE: regular rate RHYTHM: regular rhythm GI: COMMON NORMALS: Normal to inspection, nondistended, normoactive bowel sounds present, Soft to palpation, non-tender and no masses PALPATION: Yes Soft to palpation Extremity: COMMON NORMALS: normal to inspection and full ROM Neuro: COMMON NORMALS: patient oriented x3, moves all extremities and no focal motor deficits Psych: COMMON NORMALS: mental status grossly normal, Normal thought process present and cooperative THOUGHT PROCESS: Normal thought process present Skin: COMMON NORMALS: no rashes or lesions noted and no wounds GENERAL SKIN EXAM: no rashes or lesions noted Course 2 Vital Signs: Vital signs: Vital Signs Temperature 98.5 F 04/26/24 16:44 Pulse Rate 71 04/26/24 16:51 Respiratory Rate 19 H 04/26/24 16:51 Blood Pressure 172/87 04/26/24 16:51 Pulse Oximetry 98 04/26/24 16:51 Oxygen Delivery Me thod Room Air 04/26/24 16:51 MDM - Chest Pain Medical Decision Making Patient presents for chest pains atypical in nature likely chest wall pain she is point tender on exam and her pain is worse with movement and palpation. Her troponins here are negative she has no signs of ACS or dissection or pulmonary embolism she stable for discharge she is follow-up with PCP return if worsening. Medical Records I reviewed the patient's medical records. Lab Data I reviewed the patient's lab results. 04/26/24 16:48 04/26/24 16:48 Radiology Impressions Chest X-Ray 04/26/24 16:41 IMPRESSION: No acute findings. Laboratory Results WBC 4.34 10^3/uL (3.29-11.43) 04/26/24 16:48 RBC 4.40 10^6/uL (3.85-5.65) 04/26/24 16:48 Hgb 14.60 g/dL (11.27-16.99) 04/26/24 16:48 Hct 43.6 % (36-47) 04/26/24 16:48 MCV 99.1 fl (85-98) H 04/26/24 16:48 MCH 33.2 pg (27-33) H 04/26/24 16:48 MCHC 33.5 g/dL (30-55) 04/26/24 16:48 RDW 12.9 % (12.1-15.1) 04/26/24 16:48 Plt Count 143 10^3/cmm (157-399) L 04/26/24 16:48 MPV 11.4 fL (7.4-10.4) H 04/26/24 16:48 Neut % (Auto) 41.0 % 04/26/24 16:48 Lymph % (Auto) 46.8 % 04/26/24 16:48 [place] % (Auto) 10.1 % 04/26/24 16:48 Eos % (Auto) 0.9 % 04/26/24 16:48 Baso % (Auto) 0.7 % 04/26/24 16:48 Neut # (Auto) 1.78 10^3/uL (1.8-7.7) L 04/26/24 16:48 Lymph # (Auto) 2.0 10^3/uL (0.8-4.8) 04/26/24 16:48 [place] # (Auto) 0.4 10^3/uL (0.2-0.9) 04/26/24 16:48 Eos # (Auto) 0.0 10^3/uL (0.0-0.8) 04/26/24 16:48 Baso # (Auto) 0.0 10^3/uL (0.0-0.1) 04/26/24 16:48 Nucleated RBC % (auto) 0 % 04/26/24 16:48 Nucleated RBCs # 0.0 /100WBC 04/26/24 16:48 Sodium 143 mmol/L (136-145) 04/26/24 16:48 Potassium 3.6 mmol/L (3.5-5.1) 04/26/24 16:48 Chloride 105 mmol/L (98-107) 04/26/24 16:48 Carbon Dioxide 22 mmol/L (22-29) 04/26/24 16:48 Anion Gap 19.6 (5-19) H 04/26/24 16:48 BUN 9 mg/dL (8-23) 04/26/24 16:48 Creatinine 0.8 mg/dL (0.5-0.9) 04/26/24 16:48 GFR Calculation Not Reportable 04/26/24 16:48 Glucose 84 mg/dL (65-115) 04/26/24 16:48 Calculated Osmolality 294 mOsm/kg (285-295) 04/26/24 16:48 Calcium 9.9 mg/dL (8.5-10.5) 04/26/24 16:48 Total Bilirubin 1.1 mg/dL (0.15-1.2) 04/26/24 16:48 AST 35 U/L (0-32) H 04/26/24 16:48 ALT 21 U/L (0-33) 04/26/24 16:48 Alkaline Phosphatase 84 U/L (35-105) 04/26/24 16:48 Troponin T Baseline 11 ng/L (0-10) H 04/26/24 16:48 Troponin T 120 Minute 12.46 ng/L (0-10) H 04/26/24 18:31 Delta Troponin T 1.46 ABS# (0-10) 04/26/24 18:31 Total Protein 7.8 g/dL (6.6-8.7) 04/26/24 16:48 Albumin 4.5 g/dL (3.5-5.2) 04/26/24 16:48 Globulin 3.3 g/dL (1.3-4.6) 04/26/24 16:48 Lipase 95 U/L (13-60) H 04/26/24 16:48 All radiology interpretation(s) finalized by discharge EKG Data EKG 1: I personally reviewed and interpreted this EKG as follows: EKG interpretation date: 04/26/24 EKG interpretation time: 16:48 Interpretation: nsr hr [address] or t wave abnormalities qrs 98 qtc 418 Discharge Plan Discharge Patient Disposition: Home Clinical Impression: Chest pain Condition: Stable Prescriptions: New Naprosyn 500 mg tablet 500 mg PO BID PRN (Reason: pain) Qty: 20 0RF No Action fluticasone propionate [Flovent HFA] 44 mcg/actuation HFA aerosol inhaler 2 puff INHALATION PRN PRN (Reason: Shortness Of Breath) amlodipine 2.5 mg tablet 2.5 mg PO DAILY losartan 25 mg tablet 25 mg PO DAILY Vitamin D3 25 mcg (1,000 unit) Tablet 25 mcg PO DAILY Cipro 500 mg tablet 500 mg PO BID Qty: 14 0RF Discharge Orders: Discharge ED (Routine); Ordered 04/26/24 Ordered By: Norma Biggs Discharge Diet: Advance as tolerated Discharge Activity: Resume usual activity Patient Instructions: Chest Pain (ED) Coding Level of Care Code ED Cryptographer for Chris Ponce
[2024-04-26 17:01] LABS: Basophils % 0.7 %; Eosinophils % 0.9 %; Hematocrit 43.6 % (36-47); Lymphocytes % 46.8 %; Mean Corpuscular HGB Conc 33.5 g/dL (30-55); Mean Corpuscular Hemoglobin 33.2 pg (27-33); Mean Corpuscular Volume 99.1 fl (85-98); Mean Platelet Volume 11.4 fL (7.4-10.4); Monocytes # 0.4 10^3/uL (0.2-0.9); Monocytes % 10.1 %; Neutrophils # 1.78 10^3/uL (1.8-7.7); Nucleated Red Blood Cells % 0 %; Platelet Count 143 10^3/cmm (157-399); Red Cell Distribution Width 12.9 % (12.1-15.1); White Blood Count 4.34 10^3/uL (3.29-11.43)
[2024-04-26 17:43] LABS: Alanine Aminotransferase 21 U/L (0-33); Albumin Level 4.5 g/dL (3.5-5.2); Alkaline Phosphatase 84 U/L (35-105); Blood Urea Nitrogen 9 mg/dL (8-23); Calcium 9.9 mg/dL (8.5-10.5); Carbon Dioxide 22 mmol/L (22-29); Chloride 105 mmol/L (98-107); Creatinine Clr Calc Pharmacy 48.5288; Globulin 3.3 g/dL (1.3-4.6); Glucose 84 mg/dL (65-115); Lipase 95 U/L (13-60); Osmolality Calculated 294 mOsm/kg (285-295); Sodium 143 mmol/L (136-145); Total Bilirubin 1.1 mg/dL (0.15-1.2); Total Protein 7.8 g/dL (6.6-8.7)
[2024-04-26 17:47] LABS: Troponin(5th) Baseline 11 ng/L (0-10)
[2024-04-26 17:58] LABS: Anion Gap 19.6 (5-19); Aspartate Amino Transferase 35 U/L (0-32); Potassium 3.6 mmol/L (3.5-5.1)
--- NOTE | 2024-04-26 18:42 | ECG_ITS ---
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 Measurements Intervals [place] Rate: 77 P: 47 ME: 166 QRS: -47 QRSD: 97 T: 16 QT: 389 QTc: 442 Interpretive Statements SINUS RHYTHM PATTERN CONSISTENT WITH PULMONARY DISEASE LEFT ANTERIOR FASCICULAR BLOCK [QRS AXIS <= -45, QR IN I, RS IN II] Compared to ECG 04/26/2024 16:48:01 T-wave abnormality no longer present Electronically Signed On 04-27-2024 18:19:46 CDT by Chaka Adair M.D. [id number]
[2024-04-26 19:00] LABS: Troponin 5 2HR 12.46 ng/L (0-10); Troponin 5 2HR Delta 1.46 ABS# (0-10)
== END 2024-04-26 19:33 | disposition home or self-care (01) ==
PROVIDERS: Emergency Provider Emergency Medicine
DX: R07.9 Chest pain, unspecified (principal); Z85.038 Personal history of other malignant neoplasm of large intestine
CPT/HCPCS: 36415; 71045; 80053; 83690; 84484; 85025; 93005; 99285

== ENCOUNTER 2025-01-27 16:43 | Emergency (ER) | payer MEDICARE, SELFPAY ==
[2025-01-27 16:49] VITALS: BP 168/77; PULSE 102; RESP 18; TEMP 36.3; O2SAT 99
[2025-01-27 20:06] LABS: Basophils % 0.7 %; Eosinophils % 0.2 %; Hematocrit 43.4 % (36-47); Lymphocytes # 1.4 10^3/uL (0.8-4.8); Lymphocytes % 31.8 %; Mean Corpuscular HGB Conc 33.4 g/dL (30-55); Mean Corpuscular Hemoglobin 33.3 pg (27-33); Mean Corpuscular Volume 99.8 fl (85-98); Mean Platelet Volume 11.7 fL (7.4-10.4); Monocytes # 0.3 10^3/uL (0.2-0.9); Monocytes % 7.8 %; Neutrophils # 2.51 10^3/uL (1.8-7.7); Neutrophils % 59.3 %; Nucleated Red Blood Cells % 0 %; Platelet Count 132 10^3/cmm (157-399); Red Blood Count 4.35 10^6/uL (3.85-5.65); Red Cell Distribution Width 12.6 % (12.1-15.1); White Blood Count 4.24 10^3/uL (3.29-11.43)
[2025-01-27 20:22] LABS: Anion Gap 15.8 (5-19); Blood Urea Nitrogen 9 mg/dL (8-23); Calcium 9.9 mg/dL (8.5-10.5); Carbon Dioxide 25 mmol/L (22-29); Chloride 106 mmol/L (98-107); Creatinine Clr Calc Pharmacy 48.5288; Glucose 86 mg/dL (65-115); Osmolality Calculated 294 mOsm/kg (285-295); Potassium 3.8 mmol/L (3.5-5.1); Sodium 143 mmol/L (136-145)
[2025-01-27 20:40] VITALS: PULSE 87; RESP 17; O2SAT 99
--- NOTE | 2025-01-27 20:48 | W.ED.FEMALGU ---
HPI - Female Genitourinary General: Chief complaint: Urogenital-Female Stated complaint: abd pain Time Seen by Provider: 01/27/25 20:24 History of Present Illness: 84-year-old female comes in today for complaints of pain to the perianal region. Patient has a history of hemorrhoids and has recently had an area that has become increased painful and discomfort. Patient appears nontoxic. Patient appears no acute distress. Patient has recent been notified that she has renal carcinoma. Related Data Home Medications ?Medication ?Instructions ?Recorded ?Confirmed fluticasone propionate 44 2 puff inhalation PRN PRN 01/30/22 12/24/22 mcg/actuation HFA aerosol inhaler Shortness Of Breath (Flovent HFA) amlodipine 2.5 mg tablet 2.5 mg PO DAILY 12/24/22 12/24/22 cholecalciferol (vitamin D3) 25 25 mcg PO DAILY 12/24/22 12/24/22 mcg (1,000 unit) tablet (Vitamin D3) losartan 25 mg tablet 25 mg PO DAILY 12/24/22 12/24/22 Previous Rx's ?Medication ?Instructions ?Recorded ciprofloxacin HCl 500 mg tablet 500 mg PO BID #14 tabs 12/24/22 (Cipro) naproxen 500 mg tablet (Naprosyn) 500 mg PO BID PRN pain #20 tabs 04/26/24 lidocaine HCl 4 % topical cream 1 applic topical Q8H PRN pain #120 01/27/25 grams Allergies Allergy/AdvReac Type Severity Reaction Status Date / Time Cephalosporins Allergy Unknown Verified 01/27/25 16:57 dexamethasone Allergy Unknown Verified 01/27/25 16:57 Influenza Virus Vaccines Allergy Unknown Verified 01/27/25 16:57 iron Allergy ADR-Abdominal Verified 01/27/25 16:55 Pain Review of Systems General: Reports: 10 or more systems reviewed and unremarkable except in HPI and below PFSH ED PFSH: Medical History Colon cancer Surgical History Hx of cholecystectomy H/O left hemicolectomy Family History Other No pertinent family history Social History Smoking and tobacco/nicotine status: never used tobacco/nicotine Alcohol intake: never Physical Exam Const: COMMON NORMALS: alert HENMT: COMMON NORMALS: normocephalic HEAD & SCALP: normocephalic Neck/C-Spine: COMMON NORMALS: full ROM Resp: COMMON NORMALS: normal respiratory effort GI: COMMON NORMALS: Soft to palpation PALPATION: Yes Soft to palpation Back/Pelvis: COMMON NORMALS: thoracic and lumbar spine normal to inspection Extremity: COMMON NORMALS: full ROM Neuro: SENSORIUM/ORIENTATION: Yes alert Skin: NARRATIVE SKIN EXAM: Perianal hemorrhoid skin tags. Patient reports tender skin tag to the 6 o'clock position. No significant redness or erythema. Patient does have some mild intertrigo. Course Vital Signs: Vital signs: Vital Signs Temperature 97.4 F L 01/27/25 16:49 Pulse Rate 87 01/27/25 20:40 Respiratory Rate 17 01/27/25 20:40 Blood Pressure 168/77 01/27/25 16:49 Pulse Oximetry 99 01/27/25 20:40 Oxygen Delivery Me thod Room Air 01/27/25 16:49 MDM - Female Medical Decision Making Patient comes in today for some perianal discomfort. On exam patient was noted to have some skin tags that were inflamed. Patient also had a generalized. Medial rash. Differential diagnosis intertrigo, hemorrhoidal skin tags, abscess. No signs of severe illness or injury is noted. Recommend patient follow-up with surgeon for hemorrhoidal skin tag removal. Patient was given some lidocaine cream to use to the areas of discomfort. Recommend good hygiene and following up with primary care for further instructions. Patient reported understanding agreed to plan. Lab Data 01/27/25 19:25 01/27/25 19: Laboratory Results WBC 4.24 10^3/uL (3.29-11.43) 01/27/25: RBC 4.35 10^6/uL (3.85-5.65) 01/27/25 19: Hgb 14.50 g/dL (11.27-16.99) 01/27/25 19: Hct 43.4 % (36-47) 01/27/25: MCV 99.8 fl (85-98) H 01/27/25 19: MCH 33.3 pg (27-33) H 01/27/25 19: MCHC 33.4 g/dL (30-55) 01/27/25: RDW 12.6 % (12.1-15.1) 01/27/25: Plt Count 132 10^3/cmm (157-399) L 01/27/25 19: MPV 11.7 fL (7.4-10.4) H 01/27/25 19: Neut % (Auto) 59.3 % 01/27/25 19: Lymph % (Auto) 31.8 % 01/27/25:25 [place] % (Auto) 7.8 % 01/27/25: Eos % (Auto) 0.2 % 01/27/25: Baso % (Auto) 0.7 % 01/27/25: Neut # (Auto) 2.51 10^3/uL (1.8-7.7) 01/27/25: Lymph # (Auto) 1.4 10^3/uL (0.8-4.8) 01/27/25: [place] # (Auto) 0.3 10^3/uL (0.2-0.9) 01/27/25: Eos # (Auto) 0.0 10^3/uL (0.0-0.8) 01/27/25: Baso # (Auto) 0.0 10^3/uL (0.0-0.1) 01/27/25: Nucleated RBC % (auto) 0 % 01/27/25: Nucleated RBCs # 0.0 /100WBC 01/27/25 19: Sodium 143 mmol/L (136-145) 01/27/25 19: Potassium 3.8 mmol/L (3.5-5.1) 01/27/25 19: Chloride 106 mmol/L (98-107) 01/27/25 19: Carbon Dioxide 25 mmol/L (22-29) 01/27/25 19:25 Anion Gap 15.8 (5-19) 01/27/25 19:25 BUN 9 mg/dL (8-23) 01/27/25: Creatinine 0.8 mg/dL (0.5-0.9) 01/27/25 19:25 GFR Calculation Not Reportable 01/27/25 19: Glucose 86 mg/dL (65-115) 01/27/25 19:25 Calculated Osmolality 294 mOsm/kg (285-295) 01/27/25 19:25 Calcium 9.9 mg/dL (8.5-10.5) 01/27/25 19:25 Urine Color [place] (Yellow) A 01/27/25 20:40 Urine Appearance Clear (CLEAR) 01/27/25 20:40 Urine pH 8.0 (5-7) A 01/27/25 20:40 Ur Specific [place] 1.012 (1.005-1.030) 01/27/25 20:40 Urine Protein Negative (Negative) 01/27/25 20:40 Urine Glucose (UA) Negative (Normal) 01/27/25 20:40 Urine Ketones Negative (Negative) 01/27/25 20:40 Urine Blood Negative (Negative) 01/27/25 20:40 Urine Nitrate Negative (Negative) 01/27/25 20:40 Urine Bilirubin Negative (Negative) 01/27/25 20:40 Urine Urobilinogen 1.0 mg/dL (Negative) 01/27/25 20:40 Ur Leukocyte Esterase Trace (Negative) A 01/27/25 20:40 Urine RBC 0-2 /hpf (0-2) 01/27/25 20:40 Urine WBC 6-10 /hpf (0-5) 01/27/25 20:40 Ur Squamous Epith Cells 0-5 /hpf (0-5) 01/27/25 20:40 Amorphous Sediment Not Reportable 01/27/25 20:40 Urine Bacteria None seen /hpf (NONE) 01/27/25 20:40 Hyaline Casts 0.40 /lpf 01/27/25 20:40 No radiology studies performed this visit Discharge Plan Discharge Patient Disposition: Home Clinical Impression: Hemorrhoidal skin tags, Erythema intertrigo Condition: Stable Prescriptions: New lidocaine HCl 4 % cream 1 applic topical Q8H PRN (Reason: pain) Qty: 120 0RF No Action fluticasone propionate [Flovent HFA] 44 mcg/actuation HFA aerosol inhaler 2 puff INHALATION PRN PRN (Reason: Shortness Of Breath) amlodipine 2.5 mg tablet 2.5 mg PO DAILY losartan 25 mg tablet 25 mg PO DAILY Vitamin D3 25 mcg (1,000 unit) Tablet 25 mcg PO DAILY Cipro 500 mg tablet 500 mg PO BID Qty: 14 0RF Naprosyn 500 mg tablet 500 mg PO BID PRN (Reason: pain) Qty: 20 0RF Discharge Orders: Discharge ED (Routine); Ordered 01/27/25 Ordered By: Mariusz Jones Discharge Diet: Usual diet Discharge Activity: Increase activity as tolerated Patient Instructions: Topical Anesthetic (On the skin) Activity Restrictions/Additional Instructions: Use Tylenol for your pain. Use topical anesthetic creams like lidocaine cream to help with the discomfort. Follow-up with your primary care in 2 to 3 days for recheck. Case management will contact you regarding follow-up with surgeon for removal of skin tags. Print Language: Nigerien Coding Level of Care Code ED Family Assessment Worker for Chris Ponce
[2025-01-27 21:09] LABS: Bilirubin Urine Negative (Negative); Blood Urine Negative (Negative); Glucose Urine UA Negative (Normal); Ketones Urine Negative (Negative); Leukocyte Esterase Urine Trace (Negative); Nitrate Urine Negative (Negative); Protein Urine Negative (Negative); Specific Gravity, Urine 1.012 (1.005-1.030); Urine Appearance Clear (CLEAR)
[2025-01-27 21:14] LABS: Add Urine Microscopic? YES; Bacteria Urine None Seen /hpf; RBC Urine 0-2 /hpf (0-2); Squamous Epithelial Cell Urine 0-5 /hpf (0-5)
[2025-01-27 21:17] LABS: Urine Color Orange (Yellow)
[2025-01-27] MEDS: acetaminophen 325 mg Tablet 650 MG PO (22:19)
[2025-01-27] MEDS: lidocaine-prilocaine cream 5 gm 1 APPLIC TOPICAL (22:20)
[2025-01-27 23:11] VITALS: PULSE 81; RESP 17; O2SAT 100
[2025-01-28 00:39] VITALS: BP 148/79; PULSE 82; O2SAT 97
--- NOTE | 2025-01-30 07:17 | DCPLANNER ---
messaged gen surg for er f/u
== END 2025-01-28 00:40 | disposition home or self-care (01) ==
PROVIDERS: Emergency Medicine; Emergency Provider Nurse Practitioner Family
DX: K64.4 Residual hemorrhoidal skin tags (principal); L30.4 Erythema intertrigo; Z85.038 Personal history of other malignant neoplasm of large intestine
CPT/HCPCS: 36415; 80048; 81001; 85025; 99283

== ENCOUNTER → 2025-02-15 12:40 | Outpatient (BNVA) | payer MEDICARE, SELFPAY | PROVIDERS: Visit Provider Surgery | DX: K64.9 Unspecified hemorrhoids (principal) | CPT/HCPCS: 99204 ==

== ENCOUNTER → 2025-06-20 12:37 | Outpatient (BNVA) | payer MEDICARE, SELFPAY | PROVIDERS: Visit Provider Surgery | DX: K64.9 Unspecified hemorrhoids (principal) | CPT/HCPCS: 99214 ==

== ENCOUNTER → 2025-06-26 09:38 | Day surgery (SDC) | payer MEDICARE, SELFPAY ==
[2025-06-26] VITALS (12 sets, daily range): BP systolic 140–168; BP diastolic 82–105; PULSE 71–89; RESP 16–18; TEMP 36.1–36.4; O2SAT 94–100; BMI 24.2
--- NOTE | 2025-06-26 10:24 | ANES.PREANE2 ---
Pre-Anesthetic Assessment Height/Weight: Height 1.5 m Weight 54.431 kg Temp Pulse Resp BP Pulse Ox O2 Del Method 97 F L 89 18 166/105 97 Room Air 06/26/25 09:55 06/26/25 09:55 06/26/25 09:55 06/26/25 09:55 06/26/25 09:55 06/26/25 10:04 Operation Date: 06/26/25 11:10 Proposed Procedures p Hemorrhoidectomy(Not Applicable) - Gavino Garcia MD s Rectal Exam Under Anesthesia 55270 [id number] 24942 K64.9(Not Applicable) - Gavino Garcia MD Familial anesthetic complications: none Was Beta Ky taken within 24 hours: N/A Was Clonidine taken within 24 hours: N/A Last intake: Intake Last Liquid Date 06/25/25 Last Liquid Time 22:00 Last Solid Date 06/25/25 Last Solid Time 17:00 Social No alcohol and No tobacco Exam alert, oriented x 3, clear to auscultation bilaterally and regular rate & rhythm Airway Mallampati: Class I Dentition: false CV/HEM Hypertension Anesthetic Plan ASA status: 2 Anesthesia: General Risk of > 500 ml blood loss (7ml/kg in children): No Medications/Allergies Home Medications ?Medication ?Instructions ?Recorded ?Confirmed ?Last Taken ?Type amlodipine 2.5 mg tablet 2.5 mg PO DAILY 12/24/22 06/22/25 06/26/25 06:00 History beclomethasone dipropionate 80 80 mcg inhalation DAILY 06/22/25 06/22/25 06/26/25 06:00 History mcg/actuation HFA breath activated aerosol (Qvar RediHaler) Allergies Allergy/AdvReac Type Severity Reaction Status Date / Time Cephalosporins Allergy Unknown Verified 06/20/25 12:46 dexamethasone Allergy Unknown Verified 06/20/25 12:46 Influenza Virus Vaccines Allergy Unknown Verified 06/20/25 12:46 iron Allergy ADR-Abdominal Verified 06/20/25 12:46 Pain Current Medications Generic Name Dose Route Start Last Admin Trade Name Freq PRN Reason Stop Dose Admin Sodium Chloride 1,000 mls @ 30 mls/hr 06/26/25 09:45 06/26/25 10:14 Sodium Chloride 0.9% IV 06/27/25 09:44 30 mls/hr .Q24H MICHAEL Administration PFSH Anesthesia Medical History Colon cancer Surgical History Hx of cholecystectomy H/O left hemicolectomy Family History Other No pertinent family history Social History Smoking and tobacco/nicotine status: never used tobacco/nicotine Alcohol intake: never
--- NOTE | 2025-06-26 10:41 | W.PM.OPSUD ---
Surgery/Procedure H&P Update DATE OF PROCEDURE: June 26, 2025 DATE H&P PERFORMED: 06/20/25 H&P UPDATE INFORMATION: I have reviewed H&P completed within last 30 days, I have examined patient prior to procedure, No changes to prior documentation, H&P is in [facility] EMR on date indicated and Risks and benefits of the procedure reviewed PLANNED PROCEDURE: Operation Date: 06/26/25 11:10 Proposed Procedures p Hemorrhoidectomy(Not Applicable) - Gavino Garcia MD s Rectal Exam Under Anesthesia [id number] K64.9(Not Applicable) - Gavino Garcia MD
[2025-06-26] MEDS: BUPivacaine 0.25% INJ 30 mL INJECTION (12:15)
[2025-06-26] MEDS: lidocaine 2% jelly 1 APPLIC/6 ML TUBE TOPICAL (12:20)
--- NOTE | 2025-06-26 12:21 | P.OP_ITS ---
Operative Report Date of procedure: June 26, 2025 Pre-op diagnosis: Hemorrhoids and perianal skin tags Post-op diagnosis: Hemorrhoid with associated skin tag, soft tissue lesion of the perineum Post-op findings: There was a small external hemorrhoids with associated a skin tag. At the level of the perineum there was a soft tissue lesion measuring about 2 x 1.5 cm. Procedure done: Exam under anesthesia, 1: Hemorrhoidectomy and a skin tag resection. Excision of perineal soft tissue lesion Specimens removed/disposition: Perineal soft tissue lesion, hemorrhoid and skin tag Surgeon: Gavino Garcia MD Solutions Market Consultant: MANDO OR STaff Estimated blood loss: 5 Brief History: 85-year-old female with painful perianal skin tags as well as a perineal lesion who presented for evaluation for possible excision. After discussion of all risk benefits as documented my preop note we decided to proceed Procedure: Patient was brought into the OR, she was placed in the supine position. General anesthesia was given. She was then flipped into a prone jackknife position. The perianal and perineum region was prepped and draped in the usual sterile fashion. Timeout was conducted. Exam under anesthesia was done and digital rectal examination showed a small internal hemorrhoids. There was a larger hemorrhoid on the right right anterior hemorrhoid with associated skin tag. I elevated the hemorrhoid with a Allis clamp and ligated the inflow with a #3-0 Vicryl. Anterior region with an associated skin tag. Then in the perineum was separate lesion measuring about 2 cm x 1.5 cm that appeared to be a soft tissue lesion possible condyloma extended the whole perineum into the opening of the vagina. I decided to start with excision of this lesion. I proceeded to elevate the lesion with Allis clamps and then I used knife to circumferentially encircled the lesion. I carefully then used a knife to excise the lesion from the perineum and surrounding tissues taking careful consideration of not injuring the rectal wall, vaginal wall or the sphincter. The specimen was passed to the OR table to be sent to pathology. The wound was irrigated and hemostasis was achieved. I then proceeded to close the wound in layers using #3-0 Vicryl for the subcutaneous tissue and #4-0 Monocryl for the skin. I then placed my attention to the I then proceeded to use electrocautery to excise the hemorrhoid and skin tag. The defect was closed with #3-0 Vicryl, taking care for consideration of keeping an alignment of the mucocutaneous junction and I used #3 oh Good to approximate the skin edges. Hemostasis was verified no additional residual skin tags noted on that area. Local anesthesia was infiltrated and lidocaine gel was placed in the rectal cavity. Sterile dressing was applied. At the end of the procedure patient tolerated well and was transferred to PACU in stable condition
[2025-06-26] MEDS: lidocaine-epi 1% PF 1:200,000 30 mL SDV INJECTION (12:27)
--- NOTE | 2025-06-26 13:58 | PC.NURSE ---
pt complaining i can't take a deep breath refuses medication for nausea. pt belching alot. states i do that . dr. riley notified to come talk with pt.
--- NOTE | 2025-06-26 14:39 | ANE.PACU2 ---
Inpatient post-anesthesia follow up: Airway intact: Yes Vital signs: Temperature 97 F Pulse Rate 76 Respiratory Rate 18 Blood Pressure 159/103 Pulse Oximetry 100 Oxygen Delivery Me thod Room Air Oxygen Flow Rate Fraction of Inspir ed Oxygen Hydration adequate: Yes Nausea and vomiting: No Pain level: 1 Mental status: Baseline Additional Comments: [place] a bit weak upon awakening, as if she couldn't catch her breath. States better now, back to baseline. Complaining most of feeling of fecal urgency. Instructed that if breathing were to worsen at home with SOB or pain to breathe to return to ER.
== END | disposition home or self-care (01) ==
PROVIDERS: PCP Family Medicine; Visit Provider Surgery
PROC: (CPT 46260; principal; 2025-06-26 11:00)
PROC: 0DJDXZZ Inspection of Lower Intestinal Tract, External Approach (ICD-10-PCS; CPT 46260; 2025-06-26 11:00)
DX: C44.520 Squamous cell carcinoma of anal skin (principal); K64.8 Other hemorrhoids; I10 Essential (primary) hypertension; Z85.038 Personal history of other malignant neoplasm of large intestine
CPT/HCPCS: 46260; 11623; 88304; 88342; A4216; J1100; J2405; J2704; J3010; J3490; J7030; J9999

== ENCOUNTER → 2025-07-18 13:51 | Outpatient (BNVA) | payer MEDICARE, SELFPAY | PROVIDERS: Visit Provider Surgery | DX: C44.520 Squamous cell carcinoma of anal skin (principal) | CPT/HCPCS: 99024 ==